=== PATIENT | male | born 1995 | race Caucasian/White ===

== ENCOUNTER 2016-09-26 21:32 | Emergency (ER) | payer BC ==
[~2016-09-26] VITALS: Ht 172.7 cm; Wt 73.7 kg
[2016-09-26 21:34] VITALS: BP 137/91; TEMP 36.9; Ht 172.7 cm; Wt 73.7 kg
[2016-09-26] MEDS ORDERED: NAPR1TAB9 PO (22:05)
[2016-09-26] MEDS ORDERED: DIPH25CA65 PO (22:05)
--- NOTE | 2016-09-26 22:12 | EMERGENCY ROOM VISIT NOTE ---
ED Visit Note First contact with patient: 21:42 CHIEF COMPLAINT: Sore throat / HISTORY OF PRESENT ILLNESS: This 20-year-old male presents to the ER with chief complaint of sore throat which started on Wednesday. He states he got worse over the last several days. The patient states he is able to swallow foods and liquids but it is painful. The patient denies any other URI symptoms of head congestion, runny nose, fever, ear pain, cough. The patient admits that he had his tonsils and adenoids removed in the past. REVIEW OF SYSTEMS: 6 system review was performed and was negative unless stated otherwise in history of present illness. PMH: The patient is healthy; tonsillectomy, adenoidectomy SOCIAL HISTORY: Patient lives with his parents. The patient denies any tobacco use but admits to occasional alcohol use. PHYSICAL EXAM: Vital Signs were reviewed: Reviewed Nurse's notes and agree.. GENERAL 20-year-old male appears in no acute distress. MENTAL STATUS: Alert, oriented, coherent. EARS: Canals clear. TMs good light reflex, no erythema or fluid level noted. NOSE: Nasal mucosa with minimal erythema and engorgement PHARYNX: Tonsils absent Moderate erythema, no edema noted. No exudate noted. Airway is adequate. NECK: Supple, non-tender. No lymphadenopathy noted. LUNGS: Clear to auscultation without wheezes rales or rhonchi. CARDIAC: Regular rate and rhythm without murmur. SKIN: No rashes noted. EMERGENCY COURSE: Rapid strep was negative, culture is pending. DIAGNOSIS: Acute pharyngitis, probably viral DISCHARGE INSTRUCTIONS & TREATMENT: Read the pharyngitis (sore throat) instruction sheet. Call for throat test result tomorrow. Ibuprofen for pain and fever every 6 hours. Current/Historical Medications Scheduled PRN Diphenhydramine Hcl (Benadryl Allergy), 1 CAP PO for ALLERGIC REACTION Naproxen (Aleve), 220 MG PO for Pain or Fever Allergies Coded Allergies: BEE STING (Verified Allergy, Unknown, HIVES,SYNCOPE, 09/26/16) Vital Signs Date Time Temp Pulse Resp B/P (MAP) Pulse Ox O2 Delivery O2 Flow Rate FiO2 09/26/16 21:34 36.9 102 20 137/91 99 Room Air Departure Information Referrals Kiel Ch III, M.D. (PCP) Patient Instructions My [facility]
[2016-09-26 22:33] VITALS: PULSE 84; O2SAT 98
== END 2016-09-26 22:25 | disposition home or self-care (01) ==
LOC: C.EDB 21:33 → C.EDD 22:25
DX: J02.9 Acute pharyngitis, unspecified (principal)